=== PATIENT | male | born 2000 | race Caucasian/White ===

== ENCOUNTER 2020-09-07 20:45 | Emergency (ER) | payer SELFPAY ==
--- NOTE | 2020-09-07 21:07 | ER Document Report ---
ED General - General Chief Complaint: Possible Overdose Stated Complaint: OVERDOSE Notes: Patient is a 18-year-old white male with a history of prior unintentional overd ose on fentanyl in the past who presents to the emergency department via EMS for the same. Patient reports that he does not use fentanyl often but every 2 or 3 months he gets around a certain group of people who have fentanyl. He states he was drinking alcohol and subsequently ended up snorting an unknown amount of fentanyl. Reports from EMS were that they were called for him being unresponsive after snorting the fentanyl. EMS reported upon arrival that he did have a pulse but was not breathing well on his own. They gave him to IM Narcan and the patient quickly responded and has been alert oriented and in no acute distress since. Patient reports that he feels fine. He states he would like to just be checked out and then as soon as everything is checked out he would like to "sign myself out." Patient does report he feels a little bit anxious. He denies any feelings of somnolence. No headache or visual disturbances. No dizziness. No neck pain or chest pain or shortness of breath. No abdominal pain. No vomiting or diarrhea. No numbness tingling or weakness. - Related Data Allergies/Adverse Reactions: codeine Allergy (Verified 09/07/20 21:02) Past Medical History - Social History Smoking Status: Current Every Day Smoker Frequency of alcohol use: Social Drug Abuse: Other Family History: Reviewed & Not Pertinent Patient has homicidal ideation: No Review of Systems - Review of Systems Constitutional: denies: Fever EENT: denies: Nose congestion Cardiovascular: denies: Dyspnea Respiratory: denies: Short of breath Gastrointestinal: denies: Constipation Genitourinary: denies: Flank pain Male Genitourinary: denies: Testicular pain Musculoskeletal: denies: Joint swelling Skin: denies: Lesions Hematologic/Lymphatic: denies: Blood clots Neurological/Psychological: denies: Gait changes Physical Exam - Vital signs Vitals: Resp Pulse Ox 17 94 09/07/20 20:46 09/07/20 20:46 - General General appearance: Appears well, Alert In distress: None - HEENT Head: Normocephalic, Atraumatic Eyes: Normal Conjunctiva: Normal Extraocular movements intact: Yes Eyelashes: Normal Pupils: PERRL, Pinpoint Neck: Normal, Supple - Respiratory Respiratory status: No respiratory distress Chest status: Nontender Breath sounds: Normal Chest palpation: Normal - Cardiovascular Rhythm: Regular Heart sounds: Normal auscultation - Extremities General upper extremity: Normal inspection, Nontender, Normal color, Normal ROM, Normal temperature General lower extremity: Normal inspection, Nontender, Normal color, Normal ROM, Normal temperature, Normal weight bearing. No: Suzanna's sign - Neurological Neuro grossly intact: Yes Cognition: Normal Orientation: AAOx4 Jose Luis Coma Scale Eye Opening: Spontaneous [place] Coma Scale Verbal: Oriented [place] Coma Scale Motor: Obeys Commands [place] Coma Scale Total: 15 Speech: Normal Cranial nerves: Normal Cerebellar coordination: Normal Motor strength normal: LUE, RUE, LLE, RLE Additional motor exam normals: Equal bearing maker. No: Involuntary movements - Psychological Associated symptoms: Normal affect, Normal mood - Skin Skin Temperature: Warm Skin Moisture: Dry Skin Color: Normal Course - Re-evaluation Re-evalutation: 09/07/20 21:23 Initial Narcan dose was given at 2034. 09/07/20 22:46 EKG: Sinus at 126. Normal intervals. No STEMI. Interpreted by myself in conjunction with ED attending. 09/07/20 22:52 Reevaluation at this time, patient is resting comfortably in the room. He is awake and alert and in no acute distress. He is not had any somnolent events. No pains complaints. He does report being anxious because he is on house arrest and has subsequently in the hospital where he is being tracked by an ankle monit or. His heart rate is still however in the 120s. I suspect much of this is from anxiety and the inability to relax and calm down. We will place an IV and start a liter of normal saline to see if this assists his heart rate. His laboratory studies that have returned are mostly unremarkable with the exception of his liver function tests and serum alcohol of 134. We will continue to monitor. 09/07/20 22:53 09/08/20 00:18 Reevaluation at this time, patient's heart rate down to 100-103 on average. He is received approximately 700 mL of the 1000 L bolus. He is awake and alert watching TV and texting on his phone. He is in no acute distress. He is not somnolent. He has calmed significantly and is agreeable with continued monitoring, finishing the rest of the saline and then reevaluation for potential discharge. 09/08/20 01:12 At this time I went back to check on the patient and he was not in his room. I located the nurse and she advised that he left just a few minutes ago. She re ports that he states his ankle monitor was beeping and he had to leave immediately. She did remove his IV before leaving. She states her last documented heart rate was 98 bpm. Patient had been here nearly 5 hours status post the Narcan administration, approximately 5 half-lives of Narcan and has had no repeat dosing no somnolence no respiratory distress or any other evidence of rebound toxicity/overdose. Patient was likely appropriate and stable for discharge at the time of his leaving. I did intend on prescribing Narcan for him. He was last seen by nursing staff stable walking with a normal gait and in no acute distress. - Vital Signs Vital signs: Temp Pulse Resp BP Pulse Ox 98.5 F 98 16 137/88 H 98 09/07/20 21:03 09/08/20 00:10 09/08/20 00:10 09/07/20 21:00 09/08/20 00:10 - Laboratory Result Diagrams: 09/07/20 21:50 09/07/20 21:50 Laboratory results interpreted by me: 09/07/20 21:50 Chloride 108 H Glucose 111 H AST 247 H ALT 548 H Salicylates < 1.0 L Acetaminophen < 10 L Discharge - Discharge Clinical Impression: Opiate overdose Qualifiers: Encounter type: initial encounter Injury intent: accidental or unintentional Qualified Code(s): T40.601A - Poisoning by unspecified narcotics, accidental (unintentional), initial encounter Condition: Stable Disposition: AGAINST MEDICAL ADVICE
[2020-09-07 21:20] VITALS: BP 137/88
--- NOTE | 2020-09-07 22:02 | RADIOLOGY REPORT (SQ) ---
EXAM DESCRIPTION: XR CHEST 1 VIEW COMPLETED DATE/TME: 09/07/2020 21:02 CLINICAL HISTORY: 20 years, Male, OD COMPARISON: None. TECHNIQUE: Upright portable chest x-ray FINDINGS: Cardiomediastinal silhouette is not enlarged. No suspicious lung pleural bone abnormalities. IMPRESSION: Negative chest x-ray.
[2020-09-07 22:08] LABS: ABSOLUTE BASOPHILS # (AUTO) 0.1 10^3/uL (0.0-0.2); ABSOLUTE EOSINOPHILS # (AUTO) 0.1 10^3/uL (0.0-0.6); ABSOLUTE LYMPHOCYTES (AUTO) 2.1 10^3/uL (0.5-4.7); ABSOLUTE MONOCYTES (AUTO) 0.7 10^3/uL (0.1-1.4); ABSOLUTE NEUT (AUTO) 6.9 10^3/uL (1.7-8.2); BASOPHILS % (AUTO) 0.8 % (0-2); HEMATOCRIT 46.8 % (37.9-51.0); LYMPHOCYTES % (AUTO) 21.5 % (13-45); MEAN CORPUSCULAR HEMOGLOBIN 32.6 pg (27.0-33.4); MEAN CORPUSCULAR HGB CONC 34.3 g/dL (32.0-36.0); MEAN CORPUSCULAR VOLUME 95 fl (80-97); MONOCYTES % (AUTO) 7.4 % (3-13); PLATELET COUNT 193 10^3/uL (150-450); RED BLOOD COUNT 4.92 10^6/uL (4.35-5.55); RED CELL DISTRIBUTION WIDTH 13.9 % (11.5-14.0); SEGMENTED NEUTROPHILS % (AUTO) 69.3 % (42-78); TOTAL CELLS COUNTED % (AUTO) 100 %; WHITE BLOOD COUNT 9.9 10^3/uL (4.0-10.5)
[2020-09-07 22:27] LABS: ALBUMIN 4.9 g/dL (3.5-5.0); ALCOHOL 134 mg/dL (NONE DETECTED); ALKALINE PHOSPHATASE 105 U/L (38-126); ANION GAP 13 (5-19); ASPARTATE AMINO TRANSFERASE 247 U/L (17-59); BILIRUBIN,DIRECT 0.2 mg/dL (0.0-0.4); BILIRUBIN,TOTAL 0.7 mg/dL (0.2-1.3); BLOOD UREA NITROGEN 16 mg/dL (7-20); CALCIUM 9.6 mg/dL (8.4-10.2); CARBON DIOXIDE 23 mmol/L (22-30); CHLORIDE 108 mmol/L (98-107); CREATINE KINASE 88 U/L (55-170); GLUCOSE 111 mg/dL (75-110); POTASSIUM 4.3 mmol/L (3.6-5.0); TOTAL PROTEIN 8.2 g/dL (6.3-8.2)
[2020-09-07 22:30] LABS: ACETAMINOPHEN < 10 ug/mL (10-30); SALICYLATE < 1.0 mg/dL (2.0-20.0)
[2020-09-07] MEDS ORDERED: NORMAL SALINE 1000 ML 1,000 ML IV ONE (22:54)
[2020-09-08 00:47] LABS: INTERNATIONAL RATION (INR) 1.03; PARTIAL THROMBOPLASTIN TIME 25.2 SEC (23.5-35.8); PROTHROMBIN TIME 13.7 SEC (11.4-15.4)
--- NOTE | 2020-09-08 07:05 | EKG REPORT ---
SEVERITY:- OTHERWISE NORMAL ECG - SINUS TACHYCARDIA BORDERLINE RIGHT AXIS DEVIATION : Confirmed by: Narendra Orozco MD 08-Sep-2020 07:04:45
== END 2020-09-08 00:50 | disposition left against medical advice (07) ==
LOC: EDBD → ER 20:45
DX: T40.412A Poisoning by fentanyl or fentanyl analogs, intentional self-harm, initial encounter (principal); F41.9 Anxiety disorder, unspecified; F17.200 Nicotine dependence, unspecified, uncomplicated; Z88.6 Allergy status to analgesic agent; X58.XXXA Exposure to other specified factors, initial encounter
CPT/HCPCS: 93005; 99285; 96360; 36415; 80307 ×3; 82550; 85025; 85610; 85730; 80053; 84484; 71045; 93010; J7030